=== PATIENT | female | born 1990 | race Caucasian/White ===

== ENCOUNTER → 2020-12-27 | Outpatient (CLI) | payer OTHER ==
[2020-12-27 18:56] LABS: ALBUMIN 4.3 g/dL (3.5-5.0)
[2020-12-27 18:57] LABS: POTASSIUM 3.7 mmol/L (3.5-5.1)
[2020-12-27 18:58] LABS: CALCIUM 9.8 mg/dL (8.3-10.5)
[2020-12-27 18:59] LABS: TOTAL PROTEIN 7.9 g/dL (6.4-8.3)
[2020-12-27 19:01] LABS: TOTAL BILIRUBIN 0.3 mg/dL (0.2-1.2)
[2020-12-27 19:08] LABS: URINE APPEARANCE HAZY; URINE BILIRUBIN 2+ (NEGATIVE); URINE BLOOD 50 ery/uL (NEGATIVE); URINE COLOR YELLOW; URINE GLUCOSE NEGATIVE (NEGATIVE); URINE KETONE NEGATIVE (NEGATIVE); URINE LEUKOCYTE ESTERASE 1+ (NEGATIVE); URINE MUCUS PRESENT (NOT PRESENT); URINE NITRATE NEGATIVE (NEGATIVE); URINE PROTEIN(semi-quant) TRACE mg/dL (NEGATIVE); URINE UROBILINOGEN NORMAL (NORMAL)
[2020-12-28 16:01] LABS: HEPATITIS C VIRUS ANTIBODY Negative (Negative)
== END ==
LOC: LAB 18:22
DX: O09.299 Supervision of pregnancy with other poor reproductive or obstetric history, unspecified trimester (principal); Z13.1 Encounter for screening for diabetes mellitus; Z3A.00 Weeks of gestation of pregnancy not specified

== ENCOUNTER → 2021-02-28 | Outpatient (CLI) | payer OTHER | LOC: LAB 13:56 | DX: Z36.9 Encounter for antenatal screening, unspecified (principal); O03.9 Complete or unspecified spontaneous abortion without complication ==

== ENCOUNTER → 2021-06-14 | Outpatient (CLI) | payer OTHER | LOC: LAB 16:34 | DX: Z36.9 Encounter for antenatal screening, unspecified (principal) ==

== ENCOUNTER → 2021-06-21 | Outpatient (CLI) | payer OTHER | LOC: LAB 15:45 | DX: Z36.9 Encounter for antenatal screening, unspecified (principal) ==

== ENCOUNTER → 2023-04-25 | Outpatient (CLI) | payer OTHER | LOC: LAB 16:49 | DX: Z36.9 Encounter for antenatal screening, unspecified (principal) ==

== ENCOUNTER → 2023-05-01 | Outpatient (CLI) | payer OTHER | LOC: LAB 17:05 | DX: Z36.9 Encounter for antenatal screening, unspecified (principal); O03.9 Complete or unspecified spontaneous abortion without complication; O36.80X0 Pregnancy with inconclusive fetal viability, not applicable or unspecified ==